=== PATIENT | male | born 2000 | race Caucasian/White ===

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

== ENCOUNTER 2020-12-15 23:48 | Emergency (ER) | payer BC, SELFPAY ==
[2020-12-15 23:50] VITALS: BP 138/68; PULSE 111; RESP 18; TEMP 36.4; O2SAT 100; BMI 25.8
[2020-12-15 23:51] VITALS: BP 138/68; PULSE 111; RESP 18; TEMP 36.4; O2SAT 100
--- NOTE | 2020-12-16 02:56 | EX.ED.DYSGE1 ---
HPI History of Present Illness Chief Complaint: Abscess Narrative Narrative: 19-year-old male presenting with abscess to the left gluteal fold. He states been present for a couple of days. It is draining. He denies any systemic signs or symptoms. He denies history of abscess. 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 He is otherwise healthy. PFSH PFS Medical History no medical history Home Medications NK 12/31/18 [History Last Taken Unknown] Allergy/AdvReac Type Severity Reaction Status Date / Time No Known Allergies Allergy Verified 12/15/20 23:52 Social History Smoking Status: Never smoker ROS ROS ED Constitutional Constitutional ED: Denies chills or fever(s) Eyes Eyes: Denies blurry vision or change in vision ENT ENT ED: Denies rhinorrhea or sore throat Cardiovascular Cardiovascular: Denies chest pain or palpitations Respiratory/Chest Respiratory/Chest: Denies cough or dyspnea Gastrointestinal Gastrointestinal: Denies abdominal pain, nausea or vomiting Genitourinary Genitourinary ED: Denies dysuria or hematuria Musculoskeletal Musculoskeletal: Denies back pain or neck pain Integumentary Reports abscess Neurologic Neurologic: Denies headache(s) or paresthesias EXAM Physical Exam Const Vital Signs: 12/15/20 23:50 12/15/20 23:51 Temperature 97.5 F L 97.5 F L Temperature Source Temporal Temporal Pulse Rate 111 H 111 H Respiratory Rate 18 18 Blood Pressure 138/68 H 138/68 H Blood Pressure Mean 91 91 Pulse Ox 100 100 Positive well nourished General Appearance ED: NAD HEENT Reports moist mucous membranes Negative for trauma Eyes PERRL and EOMs intact bilaterally Resp normal respiratory effort and clear to auscultation bilaterally Cardio regular rate and regular rhythm GI normal to inspection, nondistended, normoactive bowel sounds Neuro oriented x3 and CN's II-XII intact bilaterally Sensorium / Orientation: alert Psych mental status grossly normal Skin Skin Narrative: 2 cm area of abscess on the left upper gluteal fold. There is central drainage from this. Minimal surrounding erythema locally. No crepitance. No tenderness to palpation over the sacrum and no fluctuance here. MDM MDM MDM Narrative Medical decision making narrative: Patient has an abscess on the left gluteal fold. Wound was cleaned with Shur-Clens. It was anesthetized with 4 cc of lidocaine with epinephrine. Good anesthesia is achieved. 1 midline incision of approximately 1.0 cm is made in the midline. Minimal purulent discharge is expressed. Wound was deloculated and there is no more purulent discharge. Wound was irrigated with 500 cc of sterile saline. Patient tolerated procedure well. The wound is not deep and I did not leave the nasal packing. Patient was counseled to use sits baths, Tylenol and ibuprofen for pain. He will be started on Augmentin for home. Patient stable for discharge. Impression: 1. Gluteal abscess Discharge Plan Triage Chief Complaint: Abscess ED Provider: Bill Hernandez Dx/Rx/DC Orders Instructions: ED Abscess Incision And Drainage Prescriptions: No Action NK RF: 0 Primary Care Provider: Benigno Wallis Referrals: Darryl Salinas MD [STAFF PHYSICIAN] - As Needed Benigno Wallis MD [Primary Care Provider] - Disposition Disposition: Home, Self Care
[2020-12-16] MEDS: Lidocaine 1% /Epi 1:100 (20ml) 20 ML Vial INFILT (03:07)
[2020-12-16] MEDS: Amox/Clavulanate 875 MG Tablet PO (03:11)
[2020-12-16 03:12] VITALS: PULSE 86; RESP 16; O2SAT 98
== END 2020-12-16 03:16 | disposition home or self-care (01) ==
PROVIDERS: Emergency Provider Student in an Organized Health Care Education/Training Program; PCP Pediatrics
DX: L02.31 Cutaneous abscess of buttock (principal)
CPT/HCPCS: 10060; 99283